=== PATIENT | male | born 1940 | race Caucasian/White ===

== ENCOUNTER 2016-12-03 19:21 | Emergency (ER) | payer OTHER ==
--- NOTE | 2016-12-03 21:09 | ED CLINICAL REPORT ---
Clinical Report - Physicians/Mid Levels [facility] [address] [place] [address] 12/03/2016 19:23 Patient: DRE SIMON Time Seen: 19:29; initial patient contact. Arrived- By ambulance. Historian- patient. HISTORY OF PRESENT ILLNESS Chief Complaint: CHEST PAIN. At its maximum, severity described as moderate. When seen in the E.D., severity described as moderate. Modifying factors- worsened by cough and deep breaths. Not relieved by anything. This started 2 days ago. Onset during moderate exertion. It is described as sharp and it is described as located in the central chest and left chest area. No radiation. No nausea, vomiting, difficulty breathing or diaphoresis. Similar symptoms previously: None. Recent medical care: Not recently seen/assessed. REVIEW OF SYSTEMS No fever, chills, pedal edema or calf pain. He has had a cough. All systems otherwise negative, except as recorded above. PAST HISTORY Lifestyle / Substance Problems. Alcoholic Liver Disease. Abdominal Pain. Headache. Alcoholism. Immunizations. Enteritis. Diarrhea. Gastritis. Alcohol Intoxication. Cirrhosis. SURGERIES: Previous Abdominal Surgery. -. SOCIAL HISTORY Current every day smoker. Heavy alcohol use. No drug use. ADDITIONAL NOTES The nursing notes have been reviewed. PHYSICAL EXAM Vital Signs: 12/03/2016 19:26 BP: 143/68. HR: 99. RR: 20. O2 saturation: 92%. Temp: 97.8 F. Pain level now: 05/19. Have been reviewed. Hypertensive. Heart rate normal. Respiratory rate normal. Temperature normal. Oxygen saturation low. Appearance: Alert. Oriented X3. No acute distress. Eyes: Eyes normal inspection. ENT: Pharynx normal. Neck: Normal inspection. No JVD. CVS: Normal heart rate and rhythm. Heart sounds normal. Respiratory: No respiratory distress. Chest pain reproducible with palpation of the costochondral junction and with deep breathing (and palpation). Mild left upper and mid- costochondral tenderness. The tenderness reproduces the patient's subjective complaint. Breath sounds normal. No decreased air movement, rales, rhonchi, wheezes or prolonged expiration. Abdomen: Soft and nontender. Bowel sounds normal. No organomegaly. No mass. Back: Normal external inspection. Skin: Skin warm and dry. Normal skin color. Extremities: No calf tenderness. No lower extremity edema. Neuro: Oriented X 3. LABS, X-RAYS, AND EKG EKG: EKG time: (1932). No acute process. No acute ischemia. Normal EKG. Normal sinus rhythm. Rate: 96. Normal P waves. Normal DANIEL. Normal QRS complex. Normal axis. Normal ST and T waves, QT and QTc. Prior EKG unavailable. The study has been interpreted contemporaneously by me. The study has been independently viewed by me. The EKG appears to be a good tracing. I agree with and confirm the computer reading of the EKG. Interpretation time: 1932. Chest X-ray: No acute disease. Moderate hyperinflation present on the right and left with flattening of the diaphragm. Consistent with COPD. No infiltrate. Views: AP. Technique: good. The X-rays were independently viewed by me and interpreted contemporaneously by me. Prior films were not available for comparison. Laboratory Tests: CBC w Diff: (DOMINGA: 12/03/2016 19:30) ( MsgRcvd 12/03/2016 19:55) Final results Test Result Flag Units (Reference) WHITE BLOOD COUNT 11.0 K/uL (4.5-11.5) RED BLOOD COUNT 4.37 L M/uL (4.50-5.90) HEMOGLOBIN 14.4 gm/dL (13.5-17.5) HEMATOCRIT 42.8 % (41.0-53.0) MEAN CELL VOLUME 98 fL (80-100) MEAN CORPUSCULAR HGB 33 pg (26-34) MEAN CORPUSCULAR HGB CONC 34 g/dL (31-37) RED CELL DISTRIBUTION WIDTH 13.9 % (11.6-14.8) PLATELET COUNT 285 K/uL (150-400) NEUTROPHIL % 40.5 L % (50-75) LYMPH % 48.0 H % (25-40) MONO % 5.5 % (3-14) EOSINOPHIL % 5.6 H % (0-4) BASOPHIL % 0.4 % (0-2) [id number]: (DOMINGA: 12/03/2016 19:30) ( [facility] 12/03/2016 20:18) Final results Test Result Flag Units (Reference) D-DIMER QUANTITATIVE < 0.27 L ug/mLFEU (0.27-0.52) The primary value of this quantitative assay relates toits negative predictive value (i.e. exclusion) of pulmonaryembolism/deep vein thrombosis/DIC.Elevated levels of d-dimer may also occur with:, age, cancer, inflammation, liver disease,post-op, infection, hematoma, coronary disease, peripheralarteriopathy, bleeding disorders and thrombolytic treatment.Results should be correlated with other clinical andradiological data.Testing Methodology: Latex Immunoassay BNP: (DOMINGA: 12/03/2016 19:30) ( [facility] 12/03/2016 20:18) Final results Test Result Flag Units (Reference) B-TYPE NATRIURETIC PEPTIDE 18.3 pg/ml (5-100) CHEM 13 PANEL: (DOMINGA: 12/03/2016 19:30) ( [facility] 12/03/2016 20:06) Final results Test Result Flag Units (Reference) GLUCOSE 96 mg/dL (70-110) BUN 8 mg/dL (7-18) CREATININE 0.8 mg/dL (0.6-1.3) Estimated GFR >60 mL/min Estimated GFR- >60 mL/min Note: Persistent reduction over 3 months in eGFR<60 mL/min/1.73 m2 defines CKD. Patients with eGFR values>=60 mL/min/1.73 m2 may also have CKD if evidence ofpersistent proteinuria. Additional information may be foundat www.kidney.org. SODIUM 145 mmol/L (136-145) POTASSIUM 3.9 mmol/L (3.5-5.1) CHLORIDE 105 mmol/L (98-107) CARBON DIOXIDE 27 mmol/L (21-32) CALCIUM 8.9 mg/dL (8.5-10.1) TOTAL PROTEIN 8.0 g/dL (6.4-8.2) ALBUMIN 3.9 g/dL (3.3-5.0) BILIRUBIN, TOTAL 0.4 mg/dL (0.0-1.0) ALKALINE PHOSPHATASE 56 U/L (46-116) AST (SGOT) 19 U/L (15-37) ALT (SGPT) 19 U/L (12-78) MAGNESIUM 2.2 mg/dL (1.8-2.4) LIPASE 101 U/L (73-393) AMYLASE 55 U/L (25-115) CPK 132 U/L (24-260) TROPONIN I <0.05 L ng/mL (0.00-1.5) TROPONIN REFERENCE RANGE:<0.1 NEGATIVE0.1-1.5 INDETERMINANT>1.5 POSITIVE ABG: (DOMINGA: 12/03/2016 19:39) ( MsgRcvd 12/03/2016 19:55) Final results Test Result Flag Units (Reference) FIO2 28 % (20-101) ABG MODE OF DELIVERY NC MODIFIED DRE TEST POSITIVE? NO LITERS PER MIN. 2 L/MIN (0-20) ABG TEMPERATURE 37 C ARTERIAL BLOOD GAS SITE RB ARTERIAL BLOOD GAS pH 7.43 (7.35-7.45) ABG PCO2 35.4 mmHg (35-45) ABG PO2 62.9 mmHg (60.0-80.0) ABG BASE EXCESS -0.7 H mmol/L (-6.0--6.0) ABG HCO3 23.4 mmol/L (20.0-26.0) ABG TCO2 24.5 mmol/L (24.0-30.0) ABG [id number] 95.1 H mmHg (7.0-14.0) *NOTE: Normal rangeis based on aFIO2 of 21% ABG SAT O2 92.9 L % (95.1-100.0) ABG TOTAL HEMOGLOBIN 14.2 g/dL (14.0-18.0) ABG O2 HEMOGLOBIN 88.8 L % (95.0-100.0) ABG CARBOXYHEMOGLOBIN 4.3 H % (0.5-1.5) ABG METHEMOGLOBIN 0.1 L % (0.4-1.5) ABG RHEMOGLOBIN 6.8 % . PROGRESS AND PROCEDURES Course of Care: Pt currently w/ sPO@ of 97% on RA w/out any treatment. Disposition: Discharged home in good and improved condition. Condition: good. CLINICAL IMPRESSION Costochondritis .12 lead EKG performed. INSTRUCTIONS Your Current Medications: CONTINUE TAKING THE FOLLOWING MEDICATIONS: Vitamin D Oral. Prescription Medications: Diclofenac 50 mg tablets: take 1 tablet orally every 8 hours as needed for pain or stiffness. Dispense twenty (20). No refill. Follow-up: Follow up with your doctor in about two days. Call for an appointment. Screening today revealed the patient's blood pressure to be in the hypertensive range. The patient should follow up with a primary care provider for blood pressure management. (Electronically signed by Bon Garland Dr. 12/03/2016 21:13)
--- NOTE | 2016-12-03 21:09 | ED NURSING NOTES ---
Clinical Report - Nurses [facility] [address] [place] [address] 12/03/2016 19:23 Patient: DRE SIMON TRIAGE Triage time 19:Dec 03 2016. Acuity: LEVEL 2. Chief Complaint: CHEST PAIN and SHORTNESS OF BREATH. SEPSIS SCREEN: Sepsis Screen: negative. Negative (no infection suspected/documented). Heart rate greater than 90. AIYANA COMA SCORE: Aiyana Coma Scale: 15- eyes open spontaneously (4); best verbal response- oriented x 4 (5); best motor response- obeys commands (6). --19:30 Shreya Kendall 19:26 12/03/16. BP: 143/68. HR: 99. RR: 20. O2 saturation: 92% on nasal cannula at 2 liters/minute. Temp: 97.8 F (oral). Pain level now: 10/10. Additional comments: Room air 89%. --19:30 Shreya Kendall. Weight: 65.7 kg stated. Height/Length: 68 inches Per Patient. BMI: 22. --19:30 Shreya Kendall. Medications Vitamin D Oral. --19:27 Shreya Kendall. Medication/allergy information source: the patient. --19:30 Shreya Kendall. Allergies No Known Drug Allergy. --19:27 Shreya Kendall. History Arrived by EMS. Historian: EMS and patient. Unaccompanied. Primary physician (none). Onset. (3 days). ( Patient reports chest pain for three days. He reports cough for one week. He states his chest hurts worse when he takes deep breath. He reports heavy smoking. He denies cardiac or lung disease.). PAST MEDICAL HX: Immunizations: status is unknown. SOCIAL HX: Heavy tobacco smoker (cigarette)- 1 pack per day. Regular alcohol use. No drug use. No infectious disease exposure. ABUSE ASSESSMENT: No report of abuse. FALL RISK ASSESSMENT: Fall risk assessment completed. No fall risk identified. NUTRITIONAL RISK ASSESSMENT: The nutritional risk assessment revealed no deficiencies. FUNCTIONAL ASSESSMENT: Functional assessment: no impairments noted. LEARNING NEEDS ASSESSMENT: The learning needs assessment revealed no barriers. SKIN INTEGRITY ASSESSMENT: Skin integrity risk assessment completed. No skin integrity risk identified. --19:30 Shreya Kendall Treatment ENVIRONMENTAL ENGINEERING ASSISTANT: See EMS report. EMS treatment ENVIRONMENTAL ENGINEERING ASSISTANT verbally communicated and report reviewed. See report. Oxygen administered by nasal cannula. Pre-hospital 12-lead EKG. BP: 148 / palp. HR: 105. O2 saturation: 96 % room air. ( 2 spray nitro one ASA). --19:31 Shreya Kendall. PROBLEMS: Lifestyle / Substance Problems. Alcoholic Liver Disease. Abdominal Pain. Headache. Alcoholism. Immunizations. Enteritis. Diarrhea. Gastritis. Alcohol Intoxication. Cirrhosis. --19:27 Shreya Kendall. ADDITIONAL SURGERIES: Previous Abdominal Surgery. --19:27 Shreya Kendall. Interventions ID band on patient. To treatment room. --19:30 Shreya Kendall. PHYSICAL ASSESSMENT 19:32 12/03/16. To room via stretcher. Patient gowned. GENERAL / NEURO / PSYCH: Alert. Oriented X 4. HEENT: Moderate scleral icterus. RESPIRATORY: Respirations not labored. CVS: Cardiac rhythm: sinus tachycardia; (100). GI / : Abdomen soft and nontender. SKIN: Skin is warm and dry. --19:32 Shreya Kendall GENERAL / NEURO / PSYCH: Appears in pain. --19:32 Shreya Kendall. NURSING PROGRESS NOTES Oxygen administered by nasal cannula at 2 liters. bus driver/monitor, pulse oximeter and NIBP monitor placed on patient; monitor alarms on. Patient gowned. Warming measures: blanket applied. Reassurance given to the patient. Two patient identifiers checked. Call light placed in reach. Side rails up x 1. Bed placed in lowest position. Brakes of bed on. Patient ready for evaluation- chart flagged and ED physician notified. --19:32 Shreya Kendall <<STRICKEN ENTRY-- 19:28 12/03/2016 Site #1 started via IV in the left antecubital space with an 20g angiocath, with aseptic technique and good blood return; one attempt. Blood drawn: rainbow set. Labeled in the presence of the patient and sent to the lab. Saline lock flushed with 10 mL saline. --19:33 Shreya Kendall --END STRIKE>> Change to Details. --19:40 Shreya Kendall EKG time: (1930). EKG was performed by a tech and shown to the ED physician. --19:34 Carlos Sung 19:30 12/03/2016 Site #2 started via IV in the left antecubital space with an 18g angiocath, with aseptic technique and good blood return; one attempt. Blood drawn: rainbow set. Labeled in the presence of the patient and sent to the lab. Saline lock flushed with 10 mL saline. --19:39 Leah Howard R.N. 19:30 12/03/2016 Site #1 started prior to arrival by EMS via IV in the right forearm with an 18g angiocath, with aseptic technique and good blood return; one attempt. Saline lock flushed with saline. --19:40 Shreya Kendall ( Radiology at bedside). --19:47 Shreya Kendall 20:02 12/03/16. BP: 148/63. HR: 90. RR: 22. O2 saturation: 93% on nasal cannula at 2 liters/minute. Pain level now: 05/19. --20:04 Shreya Kendall 20:52 12/03/16. BP: 143/60. HR: 90. RR: 20. O2 saturation: 99% on nasal cannula at 2 liters/minute. --20:52 Shreya Kendall. DISPOSITION / DISCHARGE Condition at departure: stable. The goals identified in the patient's plan of care were met. FALL RISK ASSESSMENT: Fall risk assessment completed. No fall risk identified. --21:16 Shreya Kendall 21:15 12/03/16. BP: 132/59. HR: 85. RR: 20. O2 saturation: 96% on room air. Temp: 98 F (oral). Pain level now: 05/19. --21:16 Shreya Kendall 21:29 12/03/2016 Site #1 removed upon discharge. Catheter intact. Bandaid applied. --21:34 Shreya Kendall 21:29 12/03/2016 Site #2 removed upon discharge. Catheter intact. Bandaid applied. --21:34 Shreya Kendall 21:34 12/03/16. No learning barriers present. Discharge instructions provided and reviewed with the patient. Reviewed warnings (DO not drive while on sedative medications). Reviewed medication(s) side effects, precautions, dosing and course information. Prescription(s) given to the patient. Patient verbalized understanding. Written instructions provided in German. ( Follow up with your PCP in two days days. Return if symptoms worsen. Patient verbalized understanding and had no questions at this time. Ice and anti-inflammatories as needed. Rest .). The patient was discharged by the physician. He was discharged home and unaccompanied at time of discharge. He left the Emergency Department ambulatory and via ([employer]). Driving ([employer]). --21:34 Shreya Kendall. Locked/Released at 12/03/2016 21:35 by Shreya Kendall,
--- NOTE | 2016-12-03 21:09 | ED ORDER SUMMARY ---
..... Patient: DRE SIMON OrderSheet [facility] VisitID: [id number] [place] [address] 76y, M Registration Date/Time: 12/03/2016 ORDER SHEET Weight: 65.7 kg (stated) Allergies: No Known Drug Allergy GENERAL ORDERS: Chest 1V Urgent (19:39 12/03/2016 Jhon Wilhelm) (Ack 19:40 PWeiler ER Tech1) (19:50 MCampbell) Cardiac Panel Stat (19:39 12/03/2016 Jhon Wilhelm) (Ack 19:40 PWeiler ER Tech1) (19:41 PWeiler ER Tech1) BNP Urgent (19:39 12/03/2016 Jhon Wilhelm) (Ack 19:40 PWeiler ER Tech1) (19:41 PWeiler ER Tech1) D-Dimer Urgent (19:39 12/03/2016 Jhon Wilhelm) (Ack 19:40 PWeiler ER Tech1) (19:41 PWeiler ER Tech1) Amylase Urgent (19:39 12/03/2016 Jhon Wilhelm) (Ack 19:40 PWeiler ER Tech1) (19:41 PWeiler ER Tech1) Lipase Urgent (19:39 12/03/2016 Jhon Wilhelm) (Ack 19:40 PWeiler ER Tech1) (19:41 PWeiler ER Tech1) UA-Culture if indicated Urgent (19:39 12/03/2016 Jhon Wilhelm) (Ack 19:40 PWeiler ER Tech1) (Cancelled: Other21:23 HSoule) ABG (G) Urgent (19:39 12/03/2016 Jhon Wilhelm) (Ack 19:40 PWeiler ER Tech1) (21:23 HSoule) MEDICATION ORDERS: IV FLUIDS: ORDER SHEET NOTES: [Electronically signed by Bon Garland Dr. (21:13 12/03/2016)] [Electronically signed by Shreya Kendall (21:35 12/03/2016)] [Electronically locked/signed by Shreya Knedall (21:35 12/03/2016)]
--- NOTE | 2016-12-03 21:09 | ED ORDER SUMMARY ---
..... Patient: DRE SIMON OrderSheet [facility] VisitID: [id number] [place] [address] 76y, M Registration Date/Time: 12/03/2016 ORDER SHEET Weight: 65.7 kg (stated) Allergies: No Known Drug Allergy GENERAL ORDERS: Chest 1V Urgent (19:39 12/03/2016 Jhon Wilhelm) (Ack 19:40 PWeiler ER Tech1) (19:50 MCampbell) Cardiac Panel Stat (19:39 12/03/2016 Jhon Wilhelm) (Ack 19:40 PWeiler ER Tech1) (19:41 PWeiler ER Tech1) BNP Urgent (19:39 12/03/2016 Jhon Wilhelm) (Ack 19:40 PWeiler ER Tech1) (19:41 PWeiler ER Tech1) D-Dimer Urgent (19:39 12/03/2016 Jhon Wilhelm) (Ack 19:40 PWeiler ER Tech1) (19:41 PWeiler ER Tech1) Amylase Urgent (19:39 12/03/2016 Jhon Wilhelm) (Ack 19:40 PWeiler ER Tech1) (19:41 PWeiler ER Tech1) Lipase Urgent (19:39 12/03/2016 Jhon Wilhelm) (Ack 19:40 PWeiler ER Tech1) (19:41 PWeiler ER Tech1) UA-Culture if indicated Urgent (19:39 12/03/2016 Jhon Wilhelm) (Ack 19:40 PWeiler ER Tech1) (Cancelled: Other21:23 HSoule) ABG (G) Urgent (19:39 12/03/2016 Jhon Wilhelm) (Ack 19:40 PWeiler ER Tech1) (21:23 HSoule) MEDICATION ORDERS: IV FLUIDS: ORDER SHEET NOTES: [Electronically signed by Bon Garland Dr. (21:13 12/03/2016)] [Electronically signed by Shreya Kendall (21:35 12/03/2016)] [Electronically locked/signed by Shreya Kendall (21:35 12/03/2016)]
--- NOTE | 2016-12-03 21:09 | ED CLINICAL REPORT ---
Clinical Report - Physicians/Mid Levels [facility] [address] [place] [address] 12/03/2016 19:23 Patient: DRE SIMON Time Seen: 19:29; initial patient contact. Arrived- By ambulance. Historian- patient. HISTORY OF PRESENT ILLNESS Chief Complaint: CHEST PAIN. At its maximum, severity described as moderate. When seen in the E.D., severity described as moderate. Modifying factors- worsened by cough and deep breaths. Not relieved by anything. This started 2 days ago. Onset during moderate exertion. It is described as sharp and it is described as located in the central chest and left chest area. No radiation. No nausea, vomiting, difficulty breathing or diaphoresis. Similar symptoms previously: None. Recent medical care: Not recently seen/assessed. REVIEW OF SYSTEMS No fever, chills, pedal edema or calf pain. He has had a cough. All systems otherwise negative, except as recorded above. PAST HISTORY Lifestyle / Substance Problems. Alcoholic Liver Disease. Abdominal Pain. Headache. Alcoholism. Immunizations. Enteritis. Diarrhea. Gastritis. Alcohol Intoxication. Cirrhosis. SURGERIES: Previous Abdominal Surgery. -. SOCIAL HISTORY Current every day smoker. Heavy alcohol use. No drug use. ADDITIONAL NOTES The nursing notes have been reviewed. PHYSICAL EXAM Vital Signs: 12/03/2016 19:26 BP: 143/68. HR: 99. RR: 20. O2 saturation: 92%. Temp: 97.8 F. Pain level now: 05/19. Have been reviewed. Hypertensive. Heart rate normal. Respiratory rate normal. Temperature normal. Oxygen saturation low. Appearance: Alert. Oriented X3. No acute distress. Eyes: Eyes normal inspection. ENT: Pharynx normal. Neck: Normal inspection. No JVD. CVS: Normal heart rate and rhythm. Heart sounds normal. Respiratory: No respiratory distress. Chest pain reproducible with palpation of the costochondral junction and with deep breathing (and palpation). Mild left upper and mid- costochondral tenderness. The tenderness reproduces the patient's subjective complaint. Breath sounds normal. No decreased air movement, rales, rhonchi, wheezes or prolonged expiration. Abdomen: Soft and nontender. Bowel sounds normal. No organomegaly. No mass. Back: Normal external inspection. Skin: Skin warm and dry. Normal skin color. Extremities: No calf tenderness. No lower extremity edema. Neuro: Oriented X 3. LABS, X-RAYS, AND EKG EKG: EKG time: (1932). No acute process. No acute ischemia. Normal EKG. Normal sinus rhythm. Rate: 96. Normal P waves. Normal DANIEL. Normal QRS complex. Normal axis. Normal ST and T waves, QT and QTc. Prior EKG unavailable. The study has been interpreted contemporaneously by me. The study has been independently viewed by me. The EKG appears to be a good tracing. I agree with and confirm the computer reading of the EKG. Interpretation time: 1932. Chest X-ray: No acute disease. Moderate hyperinflation present on the right and left with flattening of the diaphragm. Consistent with COPD. No infiltrate. Views: AP. Technique: good. The X-rays were independently viewed by me and interpreted contemporaneously by me. Prior films were not available for comparison. Laboratory Tests: CBC w Diff: (DOMINGA: 12/03/2016 19:30) ( MsgRcvd 12/03/2016 19:55) Final results Test Result Flag Units (Reference) WHITE BLOOD COUNT 11.0 K/uL (4.5-11.5) RED BLOOD COUNT 4.37 L M/uL (4.50-5.90) HEMOGLOBIN 14.4 gm/dL (13.5-17.5) HEMATOCRIT 42.8 % (41.0-53.0) MEAN CELL VOLUME 98 fL (80-100) MEAN CORPUSCULAR HGB 33 pg (26-34) MEAN CORPUSCULAR HGB CONC 34 g/dL (31-37) RED CELL DISTRIBUTION WIDTH 13.9 % (11.6-14.8) PLATELET COUNT 285 K/uL (150-400) NEUTROPHIL % 40.5 L % (50-75) LYMPH % 48.0 H % (25-40) MONO % 5.5 % (3-14) EOSINOPHIL % 5.6 H % (0-4) BASOPHIL % 0.4 % (0-2) [id number]: (DOMINGA: 12/03/2016 19:30) ( [facility] 12/03/2016 20:18) Final results Test Result Flag Units (Reference) D-DIMER QUANTITATIVE < 0.27 L ug/mLFEU (0.27-0.52) The primary value of this quantitative assay relates toits negative predictive value (i.e. exclusion) of pulmonaryembolism/deep vein thrombosis/DIC.Elevated levels of d-dimer may also occur with:, age, cancer, inflammation, liver disease,post-op, infection, hematoma, coronary disease, peripheralarteriopathy, bleeding disorders and thrombolytic treatment.Results should be correlated with other clinical andradiological data.Testing Methodology: Latex Immunoassay BNP: (DOMINGA: 12/03/2016 19:30) ( [facility] 12/03/2016 20:18) Final results Test Result Flag Units (Reference) B-TYPE NATRIURETIC PEPTIDE 18.3 pg/ml (5-100) CHEM 13 PANEL: (DOMINGA: 12/03/2016 19:30) ( [facility] 12/03/2016 20:06) Final results Test Result Flag Units (Reference) GLUCOSE 96 mg/dL (70-110) BUN 8 mg/dL (7-18) CREATININE 0.8 mg/dL (0.6-1.3) Estimated GFR >60 mL/min Estimated GFR- >60 mL/min Note: Persistent reduction over 3 months in eGFR<60 mL/min/1.73 m2 defines CKD. Patients with eGFR values>=60 mL/min/1.73 m2 may also have CKD if evidence ofpersistent proteinuria. Additional information may be foundat www.kidney.org. SODIUM 145 mmol/L (136-145) POTASSIUM 3.9 mmol/L (3.5-5.1) CHLORIDE 105 mmol/L (98-107) CARBON DIOXIDE 27 mmol/L (21-32) CALCIUM 8.9 mg/dL (8.5-10.1) TOTAL PROTEIN 8.0 g/dL (6.4-8.2) ALBUMIN 3.9 g/dL (3.3-5.0) BILIRUBIN, TOTAL 0.4 mg/dL (0.0-1.0) ALKALINE PHOSPHATASE 56 U/L (46-116) AST (SGOT) 19 U/L (15-37) ALT (SGPT) 19 U/L (12-78) MAGNESIUM 2.2 mg/dL (1.8-2.4) LIPASE 101 U/L (73-393) AMYLASE 55 U/L (25-115) CPK 132 U/L (24-260) TROPONIN I <0.05 L ng/mL (0.00-1.5) TROPONIN REFERENCE RANGE:<0.1 NEGATIVE0.1-1.5 INDETERMINANT>1.5 POSITIVE ABG: (DOMINGA: 12/03/2016 19:39) ( MsgRcvd 12/03/2016 19:55) Final results Test Result Flag Units (Reference) FIO2 28 % (20-101) ABG MODE OF DELIVERY NC MODIFIED DRE TEST POSITIVE? NO LITERS PER MIN. 2 L/MIN (0-20) ABG TEMPERATURE 37 C ARTERIAL BLOOD GAS SITE RB ARTERIAL BLOOD GAS pH 7.43 (7.35-7.45) ABG PCO2 35.4 mmHg (35-45) ABG PO2 62.9 mmHg (60.0-80.0) ABG BASE EXCESS -0.7 H mmol/L (-6.0--6.0) ABG HCO3 23.4 mmol/L (20.0-26.0) ABG TCO2 24.5 mmol/L (24.0-30.0) ABG UyIwV0g 95.1 H mmHg (7.0-14.0) *NOTE: Normal rangeis based on aFIO2 of 21% ABG SAT O2 92.9 L % (95.1-100.0) ABG TOTAL HEMOGLOBIN 14.2 g/dL (14.0-18.0) ABG O2 HEMOGLOBIN 88.8 L % (95.0-100.0) ABG CARBOXYHEMOGLOBIN 4.3 H % (0.5-1.5) ABG METHEMOGLOBIN 0.1 L % (0.4-1.5) ABG RHEMOGLOBIN 6.8 % . PROGRESS AND PROCEDURES Course of Care: Pt currently w/ sPO@ of 97% on RA w/out any treatment. Disposition: Discharged home in good and improved condition. Condition: good. CLINICAL IMPRESSION Costochondritis .12 lead EKG performed. INSTRUCTIONS Your Current Medications: CONTINUE TAKING THE FOLLOWING MEDICATIONS: Vitamin D Oral. Prescription Medications: Diclofenac 50 mg tablets: take 1 tablet orally every 8 hours as needed for pain or stiffness. Dispense twenty (20). No refill. Follow-up: Follow up with your doctor in about two days. Call for an appointment. Screening today revealed the patient's blood pressure to be in the hypertensive range. The patient should follow up with a primary care provider for blood pressure management. (Electronically signed by Bon Garland Dr. 12/03/2016 21:13)
--- NOTE | 2016-12-03 21:09 | ED NURSING NOTES ---
Clinical Report - Nurses [facility] [address] [place] [address] 12/03/2016 19:23 Patient: DRE SIMON TRIAGE Triage time 19:Dec 03 2016. Acuity: LEVEL 2. Chief Complaint: CHEST PAIN and SHORTNESS OF BREATH. SEPSIS SCREEN: Sepsis Screen: negative. Negative (no infection suspected/documented). Heart rate greater than 90. AIYANA COMA SCORE: Aiyana Coma Scale: 15- eyes open spontaneously (4); best verbal response- oriented x 4 (5); best motor response- obeys commands (6). --19:30 Shreya Kendall 19:26 12/03/16. BP: 143/68. HR: 99. RR: 20. O2 saturation: 92% on nasal cannula at 2 liters/minute. Temp: 97.8 F (oral). Pain level now: 10/10. Additional comments: Room air 89%. --19:30 Shreya Kendall. Weight: 65.7 kg stated. Height/Length: 68 inches Per Patient. BMI: 22. --19:30 Shreya Kendall. Medications Vitamin D Oral. --19:27 Shreya Kendall. Medication/allergy information source: the patient. --19:30 Shreya Kendall. Allergies No Known Drug Allergy. --19:27 Shreya Kendall. History Arrived by EMS. Historian: EMS and patient. Unaccompanied. Primary physician (none). Onset. (3 days). ( Patient reports chest pain for three days. He reports cough for one week. He states his chest hurts worse when he takes deep breath. He reports heavy smoking. He denies cardiac or lung disease.). PAST MEDICAL HX: Immunizations: status is unknown. SOCIAL HX: Heavy tobacco smoker (cigarette)- 1 pack per day. Regular alcohol use. No drug use. No infectious disease exposure. ABUSE ASSESSMENT: No report of abuse. FALL RISK ASSESSMENT: Fall risk assessment completed. No fall risk identified. NUTRITIONAL RISK ASSESSMENT: The nutritional risk assessment revealed no deficiencies. FUNCTIONAL ASSESSMENT: Functional assessment: no impairments noted. LEARNING NEEDS ASSESSMENT: The learning needs assessment revealed no barriers. SKIN INTEGRITY ASSESSMENT: Skin integrity risk assessment completed. No skin integrity risk identified. 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 EMS treatment PLASTIC BATTERY ASSEMBLER verbally communicated and report reviewed. See report. Oxygen administered by nasal cannula. Pre-hospital 12-lead EKG. BP: 148 / palp. HR: 105. O2 saturation: 96 % room air. ( 2 spray nitro one ASA). --19:31 Shreya Kendall. PROBLEMS: Lifestyle / Substance Problems. Alcoholic Liver Disease. Abdominal Pain. Headache. Alcoholism. Immunizations. Enteritis. Diarrhea. Gastritis. Alcohol Intoxication. Cirrhosis. --19:27 Shreya Kendall. ADDITIONAL SURGERIES: Previous Abdominal Surgery. --19:27 Shreya Kendall. Interventions ID band on patient. To treatment room. --19:30 Shreya Kendall. PHYSICAL ASSESSMENT 19:32 12/03/16. To room via stretcher. Patient gowned. GENERAL / NEURO / PSYCH: Alert. Oriented X 4. HEENT: Moderate scleral icterus. RESPIRATORY: Respirations not labored. CVS: Cardiac rhythm: sinus tachycardia; (100). GI / : Abdomen soft and nontender. SKIN: Skin is warm and dry. --19:32 Shreya Kendall GENERAL / NEURO / PSYCH: Appears in pain. --19:32 Shreya Kendall. NURSING PROGRESS NOTES Oxygen administered by nasal cannula at 2 liters. meter repairer helper, pulse oximeter and NIBP monitor placed on patient; monitor alarms on. Patient gowned. Warming measures: blanket applied. Reassurance given to the patient. Two patient identifiers checked. Call light placed in reach. Side rails up x 1. Bed placed in lowest position. Brakes of bed on. Patient ready for evaluation- chart flagged and ED physician notified. --19:32 Shreya Kendall <<STRICKEN ENTRY-- 19:28 12/03/2016 Site #1 started via IV in the left antecubital space with an 20g angiocath, with aseptic technique and good blood return; one attempt. Blood drawn: rainbow set. Labeled in the presence of the patient and sent to the lab. Saline lock flushed with 10 mL saline. --19:33 Shreya Kendall --END STRIKE>> Change to Details. --19:40 Shreya Kendall EKG time: (1930). EKG was performed by a tech and shown to the ED physician. --19:34 Carlos Sung 19:30 12/03/2016 Site #2 started via IV in the left antecubital space with an 18g angiocath, with aseptic technique and good blood return; one attempt. Blood drawn: rainbow set. Labeled in the presence of the patient and sent to the lab. Saline lock flushed with 10 mL saline. --19:39 Leah Howard R.N. 19:30 12/03/2016 Site #1 started prior to arrival by EMS via IV in the right forearm with an 18g angiocath, with aseptic technique and good blood return; one attempt. Saline lock flushed with saline. --19:40 Shreya Kendall ( Radiology at bedside). --19:47 Shreya Kendall 20:02 12/03/16. BP: 148/63. HR: 90. RR: 22. O2 saturation: 93% on nasal cannula at 2 liters/minute. Pain level now: 05/19. --20:04 Shreya Kendall 20:52 12/03/16. BP: 143/60. HR: 90. RR: 20. O2 saturation: 99% on nasal cannula at 2 liters/minute. --20:52 Shreya Kendall. DISPOSITION / DISCHARGE Condition at departure: stable. The goals identified in the patient's plan of care were met. FALL RISK ASSESSMENT: Fall risk assessment completed. No fall risk identified. --21:16 Shreya Kendall 21:15 12/03/16. BP: 132/59. HR: 85. RR: 20. O2 saturation: 96% on room air. Temp: 98 F (oral). Pain level now: 05/19. --21:16 Shreya Kendall 21:29 12/03/2016 Site #1 removed upon discharge. Catheter intact. Bandaid applied. --21:34 Shreya Kendall 21:29 12/03/2016 Site #2 removed upon discharge. Catheter intact. Bandaid applied. --21:34 Shreya Kendall 21:34 12/03/16. No learning barriers present. Discharge instructions provided and reviewed with the patient. Reviewed warnings (DO not drive while on sedative medications). Reviewed medication(s) side effects, precautions, dosing and course information. Prescription(s) given to the patient. Patient verbalized understanding. Written instructions provided in Irish. ( Follow up with your PCP in two days days. Return if symptoms worsen. Patient verbalized understanding and had no questions at this time. Ice and anti-inflammatories as needed. Rest .). The patient was discharged by the physician. He was discharged home and unaccompanied at time of discharge. He left the Emergency Department ambulatory and via ([place]). Driving ([place]). --21:34 Shreya Kendall. Locked/Released at 12/03/2016 21:35 by Shreya Kendall,
--- NOTE | 2016-12-03 21:35 | ED DISCHARGE INSTRUCTIONS ---
Patient: DRE SIMON General Instructions [facility] VisitID: [id number] [place] [address] 76y, M Registration Date/Time: 12/03/2016 Costochondritis .12 lead EKG performed. INSTRUCTIONS Your Current Medications: CONTINUE TAKING THE FOLLOWING MEDICATIONS: Vitamin D Oral. Prescription Medications: Diclofenac 50 mg tablets: take 1 tablet orally every 8 hours as needed for pain or stiffness. Dispense twenty (20). No refill. Follow-up: Follow up with your doctor in about two days. Call for an appointment. Screening today revealed the patient's blood pressure to be in the hypertensive range. The patient should follow up with a primary care provider for blood pressure management. ADDITIONAL INFORMATION Chest Wall Pain: Costochondritis The chest pain that you have had today is caused by Costochondritis. This condition is due to an inflammation of the cartilage joining the ribs to the breastbone. It is not caused by heart or lung problems. Although the exact cause for costochondritis is not known, it often occurs during times of emotional stress. It can be painful, but it is not dangerous. It usually disappears within one to two weeks, but may recur. Rarely, a more serious condition may cause symptoms similar to costochondritis; therefore, watch for the warning signs listed below. Home Care: If you feel that emotional stress is a cause of your condition, try to identify sources of that stress. It may not be obvious! Learn ways to deal with the stress in your life such as regular exercise, muscle relaxation, meditation, or simply taking time out for yourself. For more information about this, consult your doctor or go to a local bookstore and review books and tapes available on the subject of stress reduction. You may use acetaminophen (Tylenol) or ibuprofen (Motrin, Advil) to control pain, unless another pain medicine was prescribed. [ NOTE: If you have liver disease or ever had a stomach ulcer, talk with your doctor before using these medicines.] The use of heat (hot wet compress or heating pad) with or without local analgesic creams (Deep Heat Rub, Maykel Cruz) will be helpful to reduce pain. Follow Up with your doctor as directed or sooner if you do not start to improve within the next two days. Get Prompt Medical Attention if any of the following occur: A change in the type of pain: if it feels different, becomes more severe, lasts longer, or spreads into your shoulder, arm, neck, jaw or back Shortness of breath or increased pain with breathing Weakness, dizziness, or fainting Cough with dark colored sputum (phlegm) or blood Abdominal pain Dark red or black stools Fever of 100.4F (38C) or higher, or as directed by your healthcare provider You have been given the following additional information: Chest Wall Pain, Costochondritis (Electronically signed by Bon Garland Dr. 12/03/2016 21:13)
--- NOTE | 2016-12-03 21:35 | ED MAR SUMMARY ---
..... Medication Administration Record [facility] [address] [place] [id number] Patient: DRE SIMON Visit ID: [id number] 76y, M Weight: 65.7 kg Height/Length: 68 in BMI: 22 ALLERGIES: No Known Drug Allergy
--- NOTE | 2016-12-03 21:35 | ED MED RECONCILIATION SUMMARY ---
Patient: DRE SIMON Medication Reconciliation Report [facility] VisitID: [id number] [address] [place] [address] 76y, M Registration Date/Time: 12/03/2016 Weight: 65.7 kg Height/Length: 68 in. BMI: 22.0 ALLERGIES: No Known Drug Allergy The patient's Home Medications are listed below: CONTINUE TAKING THE FOLLOWING MEDICATIONS: Vitamin D Oral The source(s) of the original Home Medication information: patient The following Medications were given to the patient in the Emergency Department: None. The following Medications were prescribed to the patient: Diclofenac 50 mg tablets: take 1 tablet orally every 8 hours as needed for pain or stiffness. Dispense twenty (20). No refill. -- Bon Garland Dr.
--- NOTE | 2016-12-03 21:35 | ED MED RECONCILIATION SUMMARY ---
Patient: DRE SIMON Medication Reconciliation Report [facility] VisitID: [id number] [address] [place] [address] 76y, M Registration Date/Time: 12/03/2016 Weight: 65.7 kg Height/Length: 68 in. BMI: 22.0 ALLERGIES: No Known Drug Allergy The patient's Home Medications are listed below: CONTINUE TAKING THE FOLLOWING MEDICATIONS: Vitamin D Oral The source(s) of the original Home Medication information: patient The following Medications were given to the patient in the Emergency Department: None. The following Medications were prescribed to the patient: Diclofenac 50 mg tablets: take 1 tablet orally every 8 hours as needed for pain or stiffness. Dispense twenty (20). No refill. -- Bon Garland Dr.
--- NOTE | 2016-12-03 21:35 | ED MAR SUMMARY ---
..... Medication Administration Record [facility] [address], [place] [id number] Patient: DRE SIMON Visit ID: [id number] 76y, M Weight: 65.7 kg Height/Length: 68 in BMI: 22 ALLERGIES: No Known Drug Allergy
--- NOTE | 2016-12-03 21:54 | DIAGNOSTIC IMAGING REPORT ---
PROCEDURE: XR CHEST 1 VIEW INDICATION: CHEST PAIN TECHNIQUE: Single view chest. 1948 hours COMPARISON: 03/13/2011 FINDINGS: Normal heart and aortic contour. No central venous congestion. Mildly hyperinflated lungs with coarse interstitial markings diffusely, chronic. No acute consolidations, effusion, or pneumothorax. Hypertrophic healing deformities of left posterior ribs seven through nine. No acute fractures. IMPRESSION: 1. Mild hyperinflation with coarse interstitium suggestive of chronic emphysema or fibrosis. Correlate clinically. 2. Remote left rib fractures.
== END 2016-12-03 21:35 | disposition home or self-care (01) ==
LOC: ED SRH 19:21
DX: M94.0 Chondrocostal junction syndrome [Tietze] (principal); F17.200 Nicotine dependence, unspecified, uncomplicated; Z72.89 Other problems related to lifestyle
CPT/HCPCS: 90100; 90616; 91320; 91556; 92235; 92530; 92610; 92720; 95059